=== PATIENT | male | born 1950 | race Caucasian/White ===

== ENCOUNTER 2016-06-07 13:01 | Day surgery (SDC) | payer MEDICARE, OTHER ==
--- NOTE | 2016-06-10 11:12 | Operative Note ---
DATE OF PROCEDURE: 06/07/2016. PREOPERATIVE DIAGNOSIS: URINARY URGENCY AND FREQUENCY. POSTOPERATIVE DIAGNOSIS: BENIGN PROSTATIC HYPERTROPHY WITH SYMPTOMS. PROCEDURE: Cystoscopy. ANESTHESIA: Local. PROCEDURE: Preoperative informed consent was obtained. Antibiotics were given. The patient was brought to the procedure room at [facility] and placed supine with the genitalia prepped and draped in the usual sterile fashion. Flexible cystoscopy was carried out. The urethra appeared unremarkable, and so the prostatic urethra was entered. There was moderate bi- lobar prostatic obstruction seen. The bladder was then entered and inspected systematically. No significant abnormalities were seen. The ureteral orifices had normal appearance and positioning. There was no evidence of mucosal mass or other abnormality with the exception of mild to moderate trabeculation. The scope was then withdrawn. The patient tolerated the procedure well. PLAN: We discussed treatment options for his obstructive benign prostatic hypertrophy which appears to be the cause of his symptoms. He has elected to start Flomax, and a prescription was written. He will be following up to review his response in two months. Patrick Alas M.D. Date Time Job Number: [id number] cc: Ernestina Amin M.D. [facility]ITALMontrell
== END 2016-06-07 13:36 | disposition home or self-care (01) ==
LOC: SC 13:01
PROVIDERS: ATTEND Urology
DX: N40.1 Benign prostatic hyperplasia with lower urinary tract symptoms (principal); R35.0 Frequency of micturition; I10 Essential (primary) hypertension

== ENCOUNTER 2016-06-12 11:34 | Inpatient (IN) | payer MEDICARE, OTHER ==
[2016-06-12] MEDS ORDERED: DICYCLOMINE HCL 10 MG/ML AMPUL IM ONE (11:58)
[2016-06-12] MEDS ORDERED: 0.9 % SODIUM CHLORIDE 1,000 ML BAG IV ONE (11:58)
[2016-06-12] MEDS ORDERED: ONDANSETRON HCL IV 4 MG/2 ML VIAL IV ONE (11:58)
--- NOTE | 2016-06-12 12:04 | Emergency Department Record ---
History of Present Illness - General Chief complaint: Nausea, Vomiting, Diarrhea Stated complaint: ABD PAIN/DIARRHEA Time Seen by Provider: 06/12/16 11:57 Source: Patient Mode of Arrival: Ambulatory Limitations: No limitations - History of Present Illness Initial comments: 66 yo male presents with nausea, vomiting, loose stools since starting Mirlax 3 days ago. He took the third dose and developed frequent diarrhea without blood. Soon he became nauseated and started vomiting. In the last 24 hours the nausea, vomiting, and diarrhea have persisted. No fevers. No history of abdominal surgery. He denies any current abdominal pain. PCP is Dr Nicolas. complaint: Abdominal pain, Diarrhea, Nausea, Vomiting Description of Vomiting: Watery Description of Diarrhea: Water Location: Diffuse (none currently) Severity: Moderate Consistency: Constant, Intermittent Improves with: None Worsens with: Eating Context: Other (Onset after starting Miralax) Associated Symptoms: Loss of appetite - Related Data Home Medications Medication Instructions Recorded Confirmed Last Taken Hydrocodone/Acetaminophen 1 tab PO BID #90 03/09/16 06/12/16 Unknown [Hydrocodone/Acetaminophen 7.5mg/325mg] Lisinopril 40 mg PO DAILY #30 03/09/16 06/12/16 06/12/16 Cetirizine HCl [Zyrtec] 10 mg PO DAILY cap 04/07/16 06/12/16 06/11/16 Tamsulosin HCl [Flomax] 0.4 mg PO DAILY 06/12/16 06/12/16 06/11/16 Previous Rx's Medication Instructions Recorded Docusate Sodium [Colace] 100 mg PO BID #60 cap 03/11/16 Ondansetron [Zofran Odt] 4 mg PO Q8H #15 tab.rapdis 06/12/16 Allergies Allergy/AdvReac Type Severity Reaction Status Date / Time No Known Drug Allergies Allergy Verified 06/12/16 11:40 Review of Systems Constitutional: Denies: Chills, Fever, Malaise, Night sweats, Weakness Eyes: Denies: Eye discharge, Eye pain, Photophobia ENT: Denies: Congestion, Throat pain Respiratory: Denies: Cough, Dyspnea, Hemoptysis, Stridor, Wheezes Cardiovascular: Denies: Chest pain, Palpitations, Syncope Endocrine: Reports: Fatigue Gastrointestinal: Reports: As per HPI, Abdominal pain, Constipation, Diarrhea, Nausea, Vomiting. Denies: Hematemesis, Hematochezia, Melena Genitourinary: Denies: Dysuria, Frequency, Hematuria Musculoskeletal: Denies: Arthralgia, Back pain, Neck pain Skin: Denies: Bruising, Change in color, Rash Neurological: Denies: Confusion, Headache Psychiatric: Denies: Anxiety Hematological/Lymphatic: Denies: Blood Clots, Easy bleeding, Easy bruising, Swollen glands Past Medical History - SOCIAL HISTORY Smoking Status: Former smoker - RESPIRATORY Hx Respiratory Disorders: Yes Hx Sleep Apnea: Yes Hx of CPAP: Yes Comment:: pulmonary fibrosis since 1984 - CARDIOVASCULAR Hx Cardio Disorders: Yes Hx Hypertension: Yes Comment:: aortic aneurysm-chest? 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, more forgetful) - GI Hx GI Disorders: Yes Hx Reflux: Yes Hx Liver Disease: Yes (hepatitis C) Hx of Polyps: Yes (5-6 removed per scope) Comment:: reports intermittent constipation and takes laxative occassionally - Hx Genitourinary Disorders: Yes Hx UTI: Yes - ENDOCRINE Hx Endocrine Disorders: Yes Hx Diabetes: Yes (DM type 2 for 7-8 years) - MUSCULOSKELETAL Hx Musculoskeletal Disorders: Yes Hx Arthritis: Yes - PSYCH Hx Psych Problems: No - HEMATOLOGY/ONCOLOGY Hx Hematology/Oncology Disorders: No Family Medical History Hx Cancer: Mother, Brother/Sister Physical Exam - General General Appearance: Alert, Oriented x3, Cooperative, No acute distress Limitations: No limitations - Head Head exam: Normal inspection - Eye Eye exam: Normal appearance, PERRL. negative: Conjunctival injection - ENT ENT exam: Normal exam, Mucous membranes moist, Normal external ear exam, Normal orophraynx Ear exam: Normal external inspection. negative: External canal tenderness Nasal Exam: Normal inspection. negative: Discharge, Sinus tenderness Mouth exam: Normal external inspection, Tongue normal Teeth exam: Normal inspection. negative: Dental caries Throat exam: Normal inspection. negative: Tonsillar erythema, Tonsillar exudate - Neck Neck exam: Normal inspection, Full ROM. negative: Tenderness - Respiratory Respiratory exam: Normal lung sounds bilaterally. negative: Decreased breath sounds, Respiratory distress, Rhonchi, Stridor, Wheezes - Cardiovascular Cardiovascular Exam: Regular rate, Normal rhythm, Normal heart sounds - GI/Abdominal GI/Abdominal exam: Soft, Normal bowel sounds, Other (Very soft abdomen, non tender to deep palpation). negative: Diminished bowel sounds, Distended, Guarding, Hernia, Rigid, Tenderness - Rectal Rectal exam: Deferred - exam: Deferred - Extremities Extremities exam: Normal inspection, Full ROM, Normal capillary refill. negative: Tenderness - Back Back exam: Reports: Normal inspection, Full ROM. Denies: Muscle spasm, Rash noted, Tenderness - Neurological Neurological exam: Alert, Normal gait, Oriented X3 - Psychiatric Psychiatric exam: Normal affect, Normal mood. negative: Agitated, Anxious - Skin Skin exam: Dry, Intact, Normal color, Warm Course - Reevaluation(s) Reevaluation #1: The patient was seen and examined labs, zofran and IVF ordered 06/12/16 12:03 Reevaluation #2: The labs were reviewed No acute changes on the CBC CMP with mild increase in AG and Bili likely result of dehydration The Lipase is normal 06/12/16 12:32 Reevaluation #3: The patient states he is doing better with well controlled nausea. He is trialling PO fluids 06/12/16 13:26 Reevaluation #4: The patient continues to do well No vomiting or diarrhea He has tolerated PO without symptoms or pain 06/12/16 14:11 Reevaluation #5: The abdomen is very soft and non tender We discussed DC home on liquids with a return if any vomiting, pain, fever or uncontrolled diarrhea 06/12/16 14:21 The patient vomited. Will order CT as well. 06/12/16 14:31 06/12/16 16:30 - Consultations Consultation #1: 16:30 CT is consistent with a small bowel obstruction. No visible transition point. The distal ileal loops are decompressed. Proximal loops about 4.3 cm. Consultation #2: I SRUTHI Briceño of general surgery We discussed the CT findings of SBO The patient will be admitted to [facility], NPO, and he will consult in the morning. The abdomen remains soft. I Will discuss with his PCP or admitting service Consultation #3: I SRUTHI Nicolas. She will admit with a consult to Dr Briceño for the morning Medical Decision Making - Lab Data Result diagrams: 06/12/16 11:57 06/12/16 11:57 Disposition Disposition: Admit Clinical Impression: Vomiting and diarrhea, Small bowel obstruction Disposition: Still a Patient at [facility] Decision to Admit: Admit from ER Decision to Admit Date: 06/12/16 Decision to Admit Time: 16:55 Condition: (2) Stable Additional Instructions: Stop the Miralax The next 1 day use drinks fluids then slowly adding regular foods Return immediately if you have fever, pain, vomiting, unable to eat, uncontrolled diarrhea or new concerns. Call your doctor for a recheck in the next 1 day or return to the ER for a recheck Prescriptions: Ondansetron [Zofran Odt] 4 mg PO Q8H #15 tab.rapdis Forms: Patient Portal Access Time of Disposition: 16:55
[2016-06-12 12:13] LABS: BASO % 0.2 % (0-6); EOS % 0.2 % (0-6); GRAN % 64.5 % (47-80); HEMATOCRIT 48.1 % (42.0-52.0); HEMOGLOBIN 15.4 gm/dl (14.0-18.0); MEAN CELL VOLUME 95.1 fl (81-97); MEAN CORPUSCULAR HEMOGLOBIN 30.4 pg (27-33); MEAN PLATELET VOLUME 10.8 fl (7.4-10.4); MONO % 12.1 % (0-9); PLATELET COUNT 129 K/uL (130-400); RED BLOOD COUNT 5.06 M/uL (4.40-5.70); RED CELL DISTRIBUTION WIDTH 14.6 % (11.5-14.5); WHITE BLOOD COUNT W/O DIFF 6.1 K/uL (4.2-12.2)
[2016-06-12 12:25] LABS: ALBUMIN 4.8 gm/dL (3.5-5.0); ALKALINE PHOSPHATASE 65 U/L (38-126); ALT/SGPT 64 U/L (21-72); ANION GAP 17.5 (7-16); AST/SGOT 56 U/L (17-59); BILIRUBIN,TOTAL 1.74 mg/dL (0.2-1.3); BLOOD UREA NITROGEN 15 mg/dL (9-20); CARBON DIOXIDE 24.5 mmol/L (22-30); CREATININE 1.2 mg/dL (0.66-1.25); EST GLOMERULAR FILTRATION RATE > 60 ml/min; GLUCOSE,RANDOM 172 mg/dL (70-110); LIPASE 84 U/L (23-300); TOTAL PROTEIN 8.1 gm/dL (6.3-8.2)
[2016-06-12] MEDS ORDERED: ONDANSETRON HCL IV 4 MG/2 ML VIAL IVP ONE (12:53)
[2016-06-12] MEDS ORDERED: ONDANSETRON 4 MG ODT TABLET SL ONE (14:22)
[2016-06-12] MEDS ORDERED: MORPHINE SULFATE 5 MG/ML PFS IVP ONE (16:29)
[2016-06-12] MEDS ORDERED: ONDANSETRON HCL IV 4 MG/2 ML VIAL IVP PRN (17:34)
[2016-06-12] MEDS: MORPHINE SULFATE 5 MG/ML PFS IVP PRN (20:58)
[2016-06-13] MEDS: 0.9 % SODIUM CHLORIDE 1000ML 1,000 ML IV PRN ×3 (00:49→18:54)
[2016-06-13] MEDS: MORPHINE SULFATE 5 MG/ML PFS IVP PRN ×2 (01:00→08:14)
[2016-06-13 06:08] LABS: BASO % 0.2 % (0-6); EOS % 1.3 % (0-6); GRAN % 43.4 % (47-80); LYMPH % 42.1 % (16-45); MEAN CELL VOLUME 97.2 fl (81-97); MEAN CORPUSCULAR HEMOGLOBIN 30.8 pg (27-33); MEAN CORPUSCULAR HGB CONC 31.7 g/dl (32-36); PLATELET COUNT 111 K/uL (130-400); RED BLOOD COUNT 4.22 M/uL (4.40-5.70); RED CELL DISTRIBUTION WIDTH 14.6 % (11.5-14.5); WHITE BLOOD COUNT W/O DIFF 4.8 K/uL (4.2-12.2)
[2016-06-13 06:18] LABS: ALB/GLOB RATIO 1.3 (1.1-1.8); ALBUMIN 3.8 gm/dL (3.5-5.0); ALKALINE PHOSPHATASE 45 U/L (38-126); ALT/SGPT 55 U/L (21-72); ANION GAP 9.9 (7-16); AST/SGOT 44 U/L (17-59); BILIRUBIN,TOTAL 1.18 mg/dL (0.2-1.3); BLOOD UREA NITROGEN 13 mg/dL (9-20); CARBON DIOXIDE 26.1 mmol/L (22-30); CREATININE 0.9 mg/dL (0.66-1.25); EST GLOMERULAR FILTRATION RATE > 60 ml/min; GLUCOSE,RANDOM 112 mg/dL (70-110); TOTAL PROTEIN 6.7 gm/dL (6.3-8.2)
[2016-06-13 06:19] LABS: INR 1.07; PARTIAL THROMBOPLASTIN TIME 29.3 SECONDS (24.5-39.1); PROTHROMBIN TIME (PATIENT) 12.1 SECONDS (9.5-12.1)
--- NOTE | 2016-06-13 07:45 | CT SCAN REPORT ---
EXAM: CT SCAN OF THE ABDOMEN AND PELVIS WITH CONTRAST HISTORY: ABDOMINAL PAIN AND VOMITING. DIARRHEA. TECHNIQUE: Standard CT imaging of the abdomen and pelvis was performed with oral and intravenous contrast. 100 ml of Omnipaque 300 were administered. Additional coronal and sagittal reformatted images were also performed. Comparison: 03/09/16. FINDINGS: There is mild atelectasis or scarring at the lung bases. A calcified granuloma is present at the right lung base. There are scattered nonenlarged paraesophageal lymph nodes which appear stable. The liver parenchyma appears normal. The gallbladder, biliary tree, pancreas, spleen, and adrenal glands are normal. There are multiple varicosities along the gastric fundus. Multiple scattered nonenlarged lymph nodes are present within the celiac access. These have decreased in size when compared to the previous examination. The largest measures 1.1 x 1.8 cm. This previously measured 1.9 x 2.4 cm. No new or enlarging lymph nodes are identified. There are atherosclerotic calcifications within the aorta with no aneurysm or dissection. A 3.3 cm exophytic cyst is present at the posterior cortex of the left kidney. The kidneys and ureters are otherwise normal. There are multiple air and fluid filled dilated small bowel loops within the upper and mid abdomen. These extend into the right lower quadrant. The small bowel loops measure up to 4.3 cm in diameter. There is a small amount of free fluid within the small mesentery as well as within the pelvis. The appearance is consistent with small bowel obstruction. No discreet zone of transition is apparent on these images. The distal ileal loops are nondistended. The colon is nondistended. There is scattered diverticula within the descending and sigmoid colon regions with no evidence for acute diverticulitis. There is no pneumoperitoneum. The urinary bladder appears normal. The prostate gland is mildly enlarged. There is a small right inguinal hernia containing fat and fluid. A tiny left fat containing inguinal hernia is also present. There are no acute osseous abnormalities. IMPRESSION: 1. FINDINGS CONSISTENT WITH DEVELOPING SMALL BOWEL OBSTRUCTION WITH MULTIPLE DILATED AIR AND FLUID FILLED SMALL BOWEL LOOPS WITHIN THE ABDOMEN AND PELVIS. THESE MEASURE UP TO 4.3 CM IN DIAMETER. THERE IS NO VISIBLE DISCREET ZONE OF TRANSITION. 2. COLONIC DIVERTICULOSIS WITH NO DIVERTICULITIS. 3. MINOR FREE FLUID WITHIN THE SMALL BOWEL MESENTERY AND PELVIS. 4. FAT AND FLUID CONTAINING RIGHT INGUINAL HERNIA. A TINY FAT CONTAINING LEFT INGUINAL HERNIA IS ALSO PRESENT. 5. LEFT RENAL CYST. 6. INTERVAL DECREASE IN SIZE OF THE PREVIOUSLY NOTED RETROPERITONEAL LYMPH NODES ALONG THE CELIAC ACCESS. THE LARGEST REMAINING LYMPH NODE MEASURES 1.1 X 1.8 CM AND HAS DECREASED IN SIZE FROM THE PREVIOUS EXAMINATION WHERE IT MEASURED 1.9 X 2.4 CM. 7. THERE ARE MULTIPLE VARICOSITIES ALONG THE GASTRIC FUNDUS. 8. OLD GRANULOMATOUS DISEASE. 9. MILD CORONARY ARTERY CALCIFICATIONS. JOB NUMBER: [id number] MTDD
--- NOTE | 2016-06-13 09:26 | History & Physical ---
History of Present Illness - Date of Service Date of Service for History & Physical: 06/13/16 - History of Present Illness Admitting Diagnosis: Small Bowel obstruction History of Present Illness: Nicolas Stallworth is a 66 y/o male presented to ER with 3 day history of nausea, vomiting and diarrhea. Has history of opioid-induced constipation in which uses Mirilax with usual success. No previous history of bowel obstructions. Is known type 2 diabetic controlled with Metformin. Began passing large amounts of liquid stool 1am the morning of 06/13 with large amounts of flatus and since reports abdominal pain and nausea are "much better". Has been ambulating to the BR without issue. Travel Screening - Travel/Exposure Within Last 30 Days Have you traveled within the last 30 days?: No - Travel/Exposure Within Last Year Have you traveled outside the [place] in the last year?: No - Additonal Travel Details Have you been exposed to anyone with a communicable illness?: No - Travel Symptoms Symptom Screening: None Review of Systems Reviewed: No additional complaints except as noted below Constitutional: Denies: Chills, Fever, Malaise, Night sweats, Weakness Eyes: Denies: Eye discharge, Eye pain, Photophobia ENT: Denies: Congestion, Throat pain Respiratory: Denies: Cough, Dyspnea, Hemoptysis, Stridor, Wheezes Cardiovascular: Denies: Chest pain, Palpitations, Syncope Endocrine: Reports: Fatigue Gastrointestinal: Reports: As per HPI, Abdominal pain, Constipation, Diarrhea, Nausea, Vomiting. Denies: Hematemesis, Hematochezia, Melena Genitourinary: Denies: Dysuria, Frequency, Hematuria Musculoskeletal: Denies: Arthralgia, Back pain, Neck pain Skin: Denies: Bruising, Change in color, Rash Neurological: Denies: Confusion, Headache Psychiatric: Denies: Anxiety Hematological/Lymphatic: Denies: Blood Clots, Easy bleeding, Easy bruising, Swollen glands Past Medical History - SOCIAL HISTORY Smoking Status: Former smoker Alcohol Use: None Drug Use: None - RESPIRATORY Hx Respiratory Disorders: Yes Hx Sleep Apnea: Yes Hx of CPAP: Yes Comment:: pulmonary fibrosis since 1984 - CARDIOVASCULAR Hx Cardio Disorders: Yes Hx Hypertension: Yes Comment:: aortic aneurysm-chest? 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, more forgetful) - GI Hx GI Disorders: Yes Hx Reflux: Yes Hx Liver Disease: Yes (hepatitis C) Hx of Polyps: Yes (5-6 removed per scope) Comment:: reports intermittent constipation and takes laxative occassionally - Hx Genitourinary Disorders: Yes Hx UTI: Yes - ENDOCRINE Hx Endocrine Disorders: Yes Hx Diabetes: Yes (DM type 2 for 7-8 years) - MUSCULOSKELETAL Hx Musculoskeletal Disorders: Yes Hx Arthritis: Yes - PSYCH Hx Psych Problems: No - HEMATOLOGY/ONCOLOGY Hx Hematology/Oncology Disorders: No Family Medical History Any Significant Family History?: Yes Hx Cancer: Mother, Brother/Sister H&P Meds/Allergies - Allergies Allergies: Allergies Allergy/AdvReac Type Severity Reaction Status Date / Time No Known Drug Allergies Allergy Verified 06/12/16 11:40 - Home Medications Home Medications Medication Instructions Recorded Confirmed Last Taken Hydrocodone/Acetaminophen 1 tab PO BID #90 03/09/16 06/12/16 Unknown [Hydrocodone/Acetaminophen 7.5mg/325mg] Lisinopril 40 mg PO DAILY #30 03/09/16 06/12/16 06/12/16 Cetirizine HCl [Zyrtec] 10 mg PO DAILY cap 04/07/16 06/12/16 06/11/16 Tamsulosin HCl [Flomax] 0.4 mg PO DAILY 06/12/16 06/12/16 06/11/16 Previous Rx's Medication Instructions Recorded Docusate Sodium [Colace] 100 mg PO BID #60 cap 03/11/16 Ondansetron [Zofran Odt] 4 mg PO Q8H #15 tab.rapdis 06/12/16 - Active Medications Active Medications: Current Medications Enoxaparin Sodium (Lovenox) 40 mg SC DAILY JOYCE Sodium Chloride () 1,000 mls @ 125 mls/hr IV .Q8H PRN PRN Reason: LARGE VOLUME IV Last Admin: 06/13/16 00:49 Dose: 125 mls/hr Morphine Sulfate (Morphine Sulfate) 2.5 mg IVP Q4HR PRN PRN Reason: Pain - General Stop: 06/19/16 17:35 Last Admin: 06/13/16 08:14 Dose: 2.5 mg Ondansetron HCl (Zofran) 4 mg IVP Q4H PRN PRN Reason: NAUSEA Physical Exam - Vital Signs Vital Signs: Vital Signs - Last 24 Hrs Temp Pulse Resp BP Pulse Ox 06/13/16 08:00 98.9 F 83 20 159/93 90 L 06/13/16 04:00 99.0 F 84 16 145/78 92 L 06/13/16 00:15 98.8 F 88 16 134/82 93 L 06/12/16 20:54 98.9 F 97 H 18 146/72 94 L 06/12/16 18:06 114 H 16 06/12/16 17:34 98.6 F 114 H 16 135/75 91 L - General General Appearance: Alert, Oriented x3, Cooperative, No acute distress Limitations: No limitations - Head Head exam: Normal inspection - Eye Eye exam: Normal appearance, PERRL. negative: Conjunctival injection - ENT ENT exam: Normal exam, Mucous membranes moist, Normal external ear exam, Normal orophraynx Ear exam: Normal external inspection. negative: External canal tenderness Nasal Exam: Normal inspection. negative: Discharge, Sinus tenderness Mouth exam: Normal external inspection, Tongue normal Teeth exam: Normal inspection. negative: Dental caries Throat exam: Normal inspection. negative: Tonsillar erythema, Tonsillar exudate - Neck Neck exam: Normal inspection, Full ROM. negative: Tenderness - Respiratory Respiratory exam: Normal lung sounds bilaterally. negative: Decreased breath sounds, Respiratory distress, Rhonchi, Stridor, Wheezes - Cardiovascular Cardiovascular Exam: Regular rate, Normal rhythm, Normal heart sounds, Systolic murmur (grade I/II) - GI/Abdominal GI/Abdominal exam: Soft, Other (soft, generalized tenderness to deep palpation, hyperactive bowel sounds RUQ and RLQ, hypoactive LUQ and LLQ). negative: Diminished bowel sounds, Distended, Guarding, Hernia, Rigid, Tenderness - Rectal Rectal exam: Deferred - exam: Deferred - Extremities Extremities exam: Normal inspection, Full ROM, Normal capillary refill. negative: Tenderness - Back Back exam: Reports: Normal inspection, Full ROM. Denies: Muscle spasm, Rash noted, Tenderness - Neurological Neurological exam: Alert, Normal gait, Oriented X3 - Psychiatric Psychiatric exam: Normal affect, Normal mood. negative: Agitated, Anxious - Skin Skin exam: Dry, Intact, Normal color, Warm Results - Labs Result Diagrams: 06/13/16 06:00 06/13/16 06:00 Labs Last 24 Hours: Laboratory Results - last 24 hr 06/13/16 06/13/16 06/13/16 06:00 06:00 06:00 WBC 4.8 RBC 4.22 L Hgb 13.0 L Hct 41.0 L MCV 97.2 H MCH 30.8 MCHC 31.7 L RDW 14.6 H Plt Count 111 L MPV 10.0 Gran % 43.4 L Lymphocytes % 42.1 Monocytes % 13.0 H Eosinophils % 1.3 Basophils % 0.2 PT 12.1 INR 1.07 PTT 29.30 Sodium 145 Potassium 4.0 Chloride 109 H Carbon Dioxide 26.1 Anion Gap 9.9 BUN 13 Creatinine 0.9 Estimated GFR > 60 Random Glucose 112 H Calcium 8.1 L Total Bilirubin 1.18 AST 44 ALT 55 Alkaline Phosphatase 45 Total Protein 6.7 Albumin 3.8 Globulin 2.9 Albumin/Globulin Ratio 1.3 - Imaging and Cardiology CT scan - abdomen Status: Report reviewed (CT abdomen 06/12/16- 1- development of SBo, 2- colonic diverticulosis without diverticulitis, 3- right inguinal fat/fluid filled hernia , 4- left renal cyst, 5- decrease in retroperitoneal lymph node size along surjit access, 6- multiple varicosities in gastric fundus, 7- old granulomatous disease, 8- mild coronary artery calcification) VTE H&P Assessment - Risk for VTE Risk for VTE: Yes Risk Level: Low Risk Assessment Date: 06/12/16 Risk Assessment Time: 11:00 VTE Orders Placed or Will Be Placed: Yes Plan - Inpatient Certification Inpatient Certification: Admit to inpatient care: Based on my medical assessment, after consideration of patient's risk factors (age, co-morbidities and patient presenting symptoms and acuity), I expect that this patient will remain in the hospital greater than or equal to two midnights and that the services needed warrant inpatient care because: Patient Risk Factors: [SBO, dehydration, NPO status, awaiting surgical consult.] Estimated length of stay: [48-72 hours] The patient may reasonably be expected to be discharged or transferred to a hospital within 96 hours after admission to [facility]. Services needed: [IVF, pain control, surgical consult] Post hospital care (if known): [] I certify that my determination is in accordance with my understanding of Medicare requirements for reasonable and necessary inpatient services. 06/13/16 09:24 - Detailed Diagnosis and Plan (1) Small bowel obstruction Current Visit: Yes Status: Acute Base Code: K56.69 - OTHER INTESTINAL OBSTRUCTION Comment: 06/13/[address] Briceño IVF-0.9% NS at 125ml/hr NPO until further notice (2) Vomiting and diarrhea Current Visit: Yes Status: Acute Base Code: R11.10 - VOMITING, UNSPECIFIED; R19.7 - DIARRHEA, UNSPECIFIED Comment: 06/13/16 IVF 0.9% NS @ 125ml/hr Zofran 4mg IVP Q 4 hrs PRN CBC/BMP daily (3) Acute renal insufficiency Current Visit: No Status: Resolved Base Code: N28.9 - DISORDER OF KIDNEY AND URETER, UNSPECIFIED Comment: 06/13/16 History of previous renal insufficiency, BUN 13/Cr 0.9, GFR >60- normal on admit and today Continue .9% NS at 125/hr for hydration maintenance CBC/BMP daily (4) DVT prophylaxis Current Visit: No Status: Acute Base Code: [id number] - Comment: 06/13/16 Lovenox 40mg SQ QD (5) Full code status Current Visit: No Status: Acute Base Code: Z78.9 - OTHER SPECIFIED HEALTH STATUS Comment: 06/13/16 Patient will remain full code status during hospitalization (6) DM2 (diabetes mellitus, type 2) Current Visit: Yes Status: Chronic Qualifiers: Diabetes mellitus complication status: without complication Diabetes mellitus long term care administrator insulin use: without long term care administrator use Qualified Code(s): E11.9 - Type 2 diabetes mellitus without complications Base Code: E11.9 - TYPE 2 DIABETES MELLITUS WITHOUT COMPLICATIONS Comment: 06/13/16 Random glucose on presentation to ER 112 Monitor for hypo/hyperglycemic symptoms Continue IVF 2 125ml/hr (7) Dehydration Current Visit: Yes Status: Resolved Base Code: E86.0 - DEHYDRATION Comment: 06/13/16 Dehydration upon admit and resolved after IVF initiated, normal renal function Plt 129->101 Anion Gap 17.5->9.9 HGB 15.4->13 Continue IVf @ 125ml/hr CBC/BMP daily
[2016-06-13] MEDS ORDERED: ACETAMINOPHEN 325 MG TAB PO ONE (14:51)
[2016-06-13] MEDS: ENOXAPARIN 40 MG/0.4 ML SYR SC SCH (14:53)
[2016-06-13] MEDS: AMLODIPINE BESYLATE 5MG TAB PO SCH (16:08)
[2016-06-13] MEDS: LORATADINE 10 MG TABLET PO SCH (16:08)
[2016-06-13] MEDS: LISINOPRIL 20 MG TABLET PO SCH (16:09)
[2016-06-13] MEDS: TAMSULOSIN HCL 0.4 MG CAP.ER.24H PO SCH (16:09)
[2016-06-13] MEDS: PANTOPRAZOLE SODIUM 40 MG TABLET PO SCH (16:09)
[2016-06-14] MEDS: 0.9 % SODIUM CHLORIDE 1000ML 1,000 ML IV PRN (03:18)
[2016-06-14 06:01] LABS: BASO % 0.5 % (0-6); EOS % 2.4 % (0-6); GRAN % 40.6 % (47-80); HEMATOCRIT 39.7 % (42.0-52.0); HEMOGLOBIN 12.6 gm/dl (14.0-18.0); LYMPH % 46.2 % (16-45); MEAN CELL VOLUME 96.6 fl (81-97); MEAN CORPUSCULAR HGB CONC 31.7 g/dl (32-36); MEAN PLATELET VOLUME 10.2 fl (7.4-10.4); MONO % 10.3 % (0-9); PLATELET COUNT 100 K/uL (130-400); RED BLOOD COUNT 4.11 M/uL (4.40-5.70); RED CELL DISTRIBUTION WIDTH 14.1 % (11.5-14.5); WHITE BLOOD COUNT W/O DIFF 3.8 K/uL (4.2-12.2)
[2016-06-14 06:02] LABS: MEAN CORPUSCULAR HEMOGLOBIN 30.6 pg (27-33)
[2016-06-14 06:14] LABS: ANION GAP 9.2 (7-16); BLOOD UREA NITROGEN 8 mg/dL (9-20); CARBON DIOXIDE 26.8 mmol/L (22-30); CREATININE 0.7 mg/dL (0.66-1.25); EST GLOMERULAR FILTRATION RATE > 60 ml/min; GLUCOSE,RANDOM 116 mg/dL (70-110)
[2016-06-14] MEDS: PANTOPRAZOLE SODIUM 40 MG TABLET PO SCH (06:54)
--- NOTE | 2016-06-14 09:01 | RADIOLOGY REPORT ---
EXAM: ABDOMEN SERIES HISTORY: ABDOMINAL PAIN. TECHNIQUE: Supine and upright views of the abdomen were obtained. Comparison: 05/17/16 abdomens series. FINDINGS: The bowel gas pattern is nonspecific with air seen scattered throughout much of the colon and also probably in some slightly distended small bowel. The dilated small bowel loops measure up to about 5.7 cm in size in the right mid abdomen. Some air fluid levels are seen in both colon and small bowel as well as stomach. This may just reflect an ileus, but if there is a clinical suspicion of early obstruction, follow-up films would be suggested to see if there is any progressive bowel distention and greater air fluid levels. The right hemidiaphragm is not included in its entirety on the film with some relative elevation of the right hemidiaphragm, but as visualized, no free air evident. Hypertrophic spurring in the spine. IMPRESSION: SOME MILD SMALL BOWEL DISTENTION IN THE MID ABDOMEN PARTICULARLY ON THE RIGHT, BUT AIR IS SEEN SCATTERED THROUGHOUT MUCH OF THE COLON WELL. SOME NONSPECIFIC AIR FLUID LEVELS. RECOMMEND FOLLOW-UP FILMS IF SYMPTOMS PERSIST. NO FREE AIR EVIDENT. RIGHT HEMIDIAPHRAGM, HOWEVER, NOT ENTIRELY INCLUDED ON THE STUDY. JOB NUMBER: [id number] MTDD
[2016-06-14] MEDS ORDERED: POLYETHYLENE GLY 17 GM PACKET PO ONE (10:12)
[2016-06-14] MEDS ORDERED: METFORMIN 500 MG TABLET PO SCH (10:30)
[2016-06-14] MEDS ORDERED: GLIPIZIDE XL 5 MG TABLET PO SCH (10:30)
--- NOTE | 2016-06-14 10:32 | Physician Progress Note ---
Subjective - Date Date of Physician Progress Note: 06/14/16 - Subjective Subjective Comment: Reporting has tolerated clear liquid and full regular diet, has been moving bowels frequently noting loose light brown stools, + flatus. Nausea dn abdominal pain have resolved. No new complaint Objective - Vital Signs Vital Signs: Vital Signs - Last 24 Hrs Temp Pulse Resp BP Pulse Ox 06/14/16 08:32 98.3 F 77 20 154/76 94 L 06/14/16 06:00 98.6 F 74 16 143/73 93 L 06/14/16 01:37 98.8 F 82 18 145/76 91 L 06/13/16 22:29 98.7 F 74 18 126/67 92 L 06/13/16 18:00 98.0 F 80 18 149/90 91 L 06/13/16 14:43 97.9 F 82 18 152/91 91 L - General General Appearance: Alert, Oriented x3, Cooperative, No acute distress Limitations: No limitations - Head Head exam: Normal inspection - Eye Eye exam: Normal appearance, PERRL. negative: Conjunctival injection - ENT ENT exam: Normal exam, Mucous membranes moist, Normal external ear exam, Normal orophraynx Ear exam: Normal external inspection. negative: External canal tenderness Nasal Exam: Normal inspection. negative: Discharge, Sinus tenderness Mouth exam: Normal external inspection, Tongue normal Teeth exam: Normal inspection. negative: Dental caries Throat exam: Normal inspection. negative: Tonsillar erythema, Tonsillar exudate - Neck Neck exam: Normal inspection, Full ROM. negative: Tenderness - Respiratory Respiratory exam: Normal lung sounds bilaterally. negative: Decreased breath sounds, Respiratory distress, Rhonchi, Stridor, Wheezes - Cardiovascular Cardiovascular Exam: Regular rate, Normal rhythm, Normal heart sounds, Systolic murmur (grade I/II) - GI/Abdominal GI/Abdominal exam: Soft, Other (soft, non-tender, hyperactive bowel sounds RUQ and RLQ, mildly hypoactive LUQ and LLQ). negative: Diminished bowel sounds, Distended, Guarding, Hernia, Rigid, Tenderness - Rectal Rectal exam: Deferred - exam: Deferred - Extremities Extremities exam: Normal inspection, Full ROM, Normal capillary refill. negative: Tenderness - Back Back exam: Reports: Normal inspection, Full ROM. Denies: Muscle spasm, Rash noted, Tenderness - Neurological Neurological exam: Alert, Normal gait, Oriented X3 - Psychiatric Psychiatric exam: Normal affect, Normal mood. negative: Agitated, Anxious - Skin Skin exam: Dry, Intact, Normal color, Warm Assessment and Plan - Assessment and Plan (1) Small bowel obstruction Current Visit: Yes Status: Acute Base Code: K56.69 - OTHER INTESTINAL OBSTRUCTION Comment: 06/14/[address] Briceño- abdominal x-ray most likely ileus IVF D/C Tolerating regular diet (2) Vomiting and diarrhea Current Visit: Yes Status: Acute Base Code: R11.10 - VOMITING, UNSPECIFIED; R19.7 - DIARRHEA, UNSPECIFIED Comment: 06/14/16 Nausea and vomiting resolved IVF D/C Continues with loose frequent stooling and + flatus (3) DVT prophylaxis Current Visit: No Status: Acute Base Code: [id number] - Comment: 06/14/16 Lovenox 40mg SQ QD, will DC at discharge (4) Full code status Current Visit: No Status: Acute Base Code: Z78.9 - OTHER SPECIFIED HEALTH STATUS Comment: 06/13/16 Patient will remain full code status during hospitalization (5) DM2 (diabetes mellitus, type 2) Current Visit: Yes Status: Chronic Qualifiers: Diabetes mellitus complication status: without complication Diabetes mellitus detention insulin use: without extermination supervisor use Qualified Code(s): E11.9 - Type 2 diabetes mellitus without complications Base Code: E11.9 - TYPE 2 DIABETES MELLITUS WITHOUT COMPLICATIONS Comment: 06/14/16 Began regular diet today and tolerating well Restart Glipizide and Metformin per home dosing Results - Labs Result Diagrams: 06/14/16 05:55 06/14/16 05:55 Labs Last 24 Hours: Laboratory Results - last 24 hr 06/14/16 06/14/16 06/15/16 05:55 05:55 06:00 WBC 3.8 L RBC 4.11 L Hgb 12.6 L Hct 39.7 L MCV 96.6 MCH 30.6 MCHC 31.7 L RDW 14.1 Plt Count 100 L MPV 10.2 Gran % 40.6 L Neutrophils % Not Reportable Cancelled Band Neutrophils % Cancelled Lymphocytes % Not Reportable Cancelled Monocytes % Not Reportable Cancelled Eosinophils % 2.4 Cancelled Basophils % 0.5 Cancelled Metamyelocytes Cancelled Myelocytes Cancelled Promyelocytes Cancelled Nucleated RBCs Cancelled Differential Comment Cancelled Hypersegmented Polys Cancelled Plasma Cells Cancelled Other Cell Type Cancelled Toxic Granulation Cancelled Dohle Bodies Cancelled Mary Rods Cancelled Platelet Estimate Cancelled RBC Morphology Cancelled Polychromasia Cancelled Hypochromasia Cancelled Poikilocytosis Cancelled Basophilic Stippling Cancelled Anisocytosis Cancelled Microcytosis Cancelled Macrocytosis Cancelled Spherocytes Cancelled Sickle Cells Cancelled Target Cells Cancelled Tear Drop Cells Cancelled Ovalocytes Cancelled Stomatocytes Cancelled Helmet Cells Cancelled Ren-[place] Bodies Cancelled [place] Rings Cancelled [place] Cells Cancelled Acanthocytes (Spur) Cancelled Rouleaux Cancelled Schistocytes Cancelled Morphology Comment Cancelled Sodium 140 Potassium 4.0 Chloride 104 Carbon Dioxide 26.8 Anion Gap 9.2 BUN 8 L Creatinine 0.7 Estimated GFR > 60 Random Glucose 116 H Calcium 8.3 L 06/16/16 06/17/16 06:00 06:00 WBC RBC Hgb Hct MCV MCH MCHC RDW Plt Count MPV Gran % Neutrophils % Cancelled Cancelled Band Neutrophils % Cancelled Cancelled Lymphocytes % Cancelled Cancelled Monocytes % Cancelled Cancelled Eosinophils % Cancelled Cancelled Basophils % Cancelled Cancelled Metamyelocytes Cancelled Cancelled Myelocytes Cancelled Cancelled Promyelocytes Cancelled Cancelled Nucleated RBCs Cancelled Cancelled Differential Comment Cancelled Cancelled Hypersegmented Polys Cancelled Cancelled Plasma Cells Cancelled Cancelled Other Cell Type Cancelled Cancelled Toxic Granulation Cancelled Cancelled Dohle Bodies Cancelled Cancelled Mary Rods Cancelled Cancelled Platelet Estimate Cancelled Cancelled RBC Morphology Cancelled Cancelled Polychromasia Cancelled Cancelled Hypochromasia Cancelled Cancelled Poikilocytosis Cancelled Cancelled Basophilic Stippling Cancelled Cancelled Anisocytosis Cancelled Cancelled Microcytosis Cancelled Cancelled Macrocytosis Cancelled Cancelled Spherocytes Cancelled Cancelled Sickle Cells Cancelled Cancelled Target Cells Cancelled Cancelled Tear Drop Cells Cancelled Cancelled Ovalocytes Cancelled Cancelled Stomatocytes Cancelled Cancelled Helmet Cells Cancelled Cancelled Ren-[place] Bodies Cancelled Cancelled [place] Rings Cancelled Cancelled [place] Cells Cancelled Cancelled Acanthocytes (Spur) Cancelled Cancelled Rouleaux Cancelled Cancelled Schistocytes Cancelled Cancelled Morphology Comment Cancelled Cancelled Sodium Potassium Chloride Carbon Dioxide Anion Gap BUN Creatinine Estimated GFR Random Glucose Calcium - Imaging and Cardiology Abdominal x-ray Status: Report reviewed (1- elevation of right hemidiaphragm, 2- most dealer compliance representative of ileus, 3- no free air, 4- scattered air within colon, 5- continue folow up if clinical suspicion of SBO) DVT/PE Assessment - Risk for VTE Risk for VTE: No Risk Level: Low Risk Assessment Date: 06/12/16 Risk Assessment Time: 11:00 VTE Orders Placed or Will Be Placed: Yes - Active Medicaitons Current Medications: Current Medications Amlodipine Besylate (Norvasc) 10 mg PO DAILY [facility] Last Admin: 06/13/16 16:08 Dose: 10 mg Enoxaparin Sodium (Lovenox) 40 mg SC DAILY [facility] Last Admin: 06/13/16 14:53 Dose: 40 mg Sodium Chloride () 1,000 mls @ 125 mls/hr IV .Q8H PRN PRN Reason: LARGE VOLUME IV Last Admin: 06/14/16 03:18 Dose: 125 mls/hr Lisinopril (Zestril) 40 mg PO DAILY [facility] Last Admin: 06/13/16 16:09 Dose: 40 mg Loratadine (Claritin) 10 mg PO DAILY [facility] Last Admin: 06/13/16 16:08 Dose: 10 mg Morphine Sulfate (Morphine Sulfate) 2.5 mg IVP Q4HR PRN PRN Reason: Pain - General Stop: 06/19/16 17:35 Last Admin: 06/13/16 08:14 Dose: 2.5 mg Ondansetron HCl (Zofran) 4 mg IVP Q4H PRN PRN Reason: NAUSEA [facility] Last Admin: 06/14/16 06:54 Dose: 40 mg Tamsulosin HCl (Flomax) 0.4 mg PO DAILY [facility] Last Admin: 06/13/16 16:09 Dose: 0.4 mg AMI Plan - Labs Result Diagrams: 06/14/16 05:55 06/14/16 05:55
[2016-06-14] MEDS: LISINOPRIL 20 MG TABLET PO SCH (11:00)
[2016-06-14] MEDS: ENOXAPARIN 40 MG/0.4 ML SYR SC SCH (11:01)
[2016-06-14] MEDS: AMLODIPINE BESYLATE 5MG TAB PO SCH (11:01)
[2016-06-14] MEDS: LORATADINE 10 MG TABLET PO SCH (11:02)
[2016-06-14] MEDS: TAMSULOSIN HCL 0.4 MG CAP.ER.24H PO SCH (11:05)
[2016-06-14] MEDS ORDERED: HYDROCODONE/APAP 7.5/325MG TABLET PO PRN (11:14)
--- NOTE | 2016-06-14 11:23 | Discharge Summary ---
Providers Discharge Summary Date: 06/14/16 Date of admission: 06/12/16 17:19 Expected Date of Discharge: 06/14/16 Attending physician: JUAN DANIEL BERGER Primary care physician: JUAN DANIEL BERGER Physical Exam - Vital Signs Vital Signs: Vital Signs - Last 24 Hrs Temp Pulse Resp BP Pulse Ox 06/14/16 08:32 98.3 F 77 20 154/76 94 L 06/14/16 06:00 98.6 F 74 16 143/73 93 L 06/14/16 01:37 98.8 F 82 18 145/76 91 L 06/13/16 22:29 98.7 F 74 18 126/67 92 L 06/13/16 18:00 98.0 F 80 18 149/90 91 L 06/13/16 14:43 97.9 F 82 18 152/91 91 L - General General Appearance: Alert, Oriented x3, Cooperative, No acute distress Limitations: No limitations - Head Head exam: Normal inspection - Eye Eye exam: Normal appearance, PERRL. negative: Conjunctival injection - ENT ENT exam: Normal exam, Mucous membranes moist, Normal external ear exam, Normal orophraynx Ear exam: Normal external inspection. negative: External canal tenderness Nasal Exam: Normal inspection. negative: Discharge, Sinus tenderness Mouth exam: Normal external inspection, Tongue normal Teeth exam: Normal inspection. negative: Dental caries Throat exam: Normal inspection. negative: Tonsillar erythema, Tonsillar exudate - Neck Neck exam: Normal inspection, Full ROM. negative: Tenderness - Respiratory Respiratory exam: Normal lung sounds bilaterally. negative: Decreased breath sounds, Respiratory distress, Rhonchi, Stridor, Wheezes - Cardiovascular Cardiovascular Exam: Regular rate, Normal rhythm, Normal heart sounds, Systolic murmur (grade I/II) - GI/Abdominal GI/Abdominal exam: Soft, Other (soft, non-tender, hyperactive bowel sounds RUQ and RLQ, mildly hypoactive LUQ and LLQ). negative: Diminished bowel sounds, Distended, Guarding, Hernia, Rigid, Tenderness - Rectal Rectal exam: Deferred - exam: Deferred - Extremities Extremities exam: Normal inspection, Full ROM, Normal capillary refill. negative: Tenderness - Back Back exam: Reports: Normal inspection, Full ROM. Denies: Muscle spasm, Rash noted, Tenderness - Neurological Neurological exam: Alert, Normal gait, Oriented X3 - Psychiatric Psychiatric exam: Normal affect, Normal mood. negative: Agitated, Anxious - Skin Skin exam: Dry, Intact, Normal color, Warm Hospitalization - Hospitalization Admission Diagnosis: Small Bowel obstruction - Problem List/Discharge Diagnosis (1) Small bowel obstruction Current Visit: Yes Status: Acute Base Code: K56.69 - OTHER INTESTINAL OBSTRUCTION Comment: 06/14/[address] Briceño- abdominal x-ray most likely ileus IVF D/C Tolerating regular diet + stooling and flatus (2) Vomiting and diarrhea Current Visit: Yes Status: Acute Base Code: R11.10 - VOMITING, UNSPECIFIED; R19.7 - DIARRHEA, UNSPECIFIED Comment: 06/14/16 Nausea and vomiting resolved IVF D/C Continues with loose frequent stooling and + flatus (3) DVT prophylaxis Current Visit: No Status: Acute Base Code: [id number] - Comment: 06/14/16 Lovenox 40mg SQ QD, will DC at discharge (4) Full code status Current Visit: No Status: Acute Base Code: Z78.9 - OTHER SPECIFIED HEALTH STATUS Comment: 06/13/16 Patient will remain full code status during hospitalization (5) DM2 (diabetes mellitus, type 2) Current Visit: Yes Status: Chronic Discharge Diagnosis: Diabetes mellitus complication status: without complication Diabetes mellitus long term care administrator insulin use: without long term care administrator use Qualified Code(s): E11.9 - Type 2 diabetes mellitus without complications Base Code: E11.9 - TYPE 2 DIABETES MELLITUS WITHOUT COMPLICATIONS Comment: 06/14/16 Began regular diet today and tolerating well Restart Glipizide and Metformin per home dosing - Hospitalization Course Procedures: Imaging and X-Rays 06/13/16 11:10 ABDOMEN 2 VIEW [RAD] Stat Abnormal Labs: Abnormal Lab Results 06/13/16 06/13/16 06/14/16 Range/Units 06:00 06:00 05:55 WBC 3.8 L (4.2-12.2) K/uL RBC 4.22 L 4.11 L (4.40-5.70) M/uL Hgb 13.0 L 12.6 L (14.0-18.0) gm/dl Hct 41.0 L 39.7 L (42.0-52.0) % MCV 97.2 H (81-97) fl MCHC 31.7 L 31.7 L (32-36) g/dl RDW 14.6 H (11.5-14.5) % Plt Count 111 L 100 L (130-400) K/uL Gran % 43.4 L 40.6 L (47-80) % Monocytes % 13.0 H (0-9) % Chloride 109 H (98-107) mmol/L BUN (9-20) mg/dL Random Glucose 112 H (70-110) mg/dL Calcium 8.1 L (8.5-10.1) mg/dL 06/14/16 Range/Units 05:55 WBC (4.2-12.2) K/uL RBC (4.40-5.70) M/uL Hgb (14.0-18.0) gm/dl Hct (42.0-52.0) % MCV (81-97) fl MCHC (32-36) g/dl RDW (11.5-14.5) % Plt Count (130-400) K/uL Gran % (47-80) % Monocytes % (0-9) % Chloride (98-107) mmol/L BUN 8 L (9-20) mg/dL Random Glucose 116 H (70-110) mg/dL Calcium 8.3 L (8.5-10.1) mg/dL Condition at Discharge: (2) Stable Discharge Medications - Discharge Medications Prescriptions: Ondansetron [Zofran Odt] 4 mg PO Q8H #15 tab.rapdis Home Medications: Ambulatory Orders Hydrocodone/Acetaminophen [Hydrocodone/Acetaminophen 7.5mg/325mg] 1 tab PO BID # 90 03/09/16 [Last Taken Unknown] Lisinopril 40 mg PO DAILY #30 03/09/16 [Last Taken 06/12/16] Cetirizine HCl [Zyrtec] 10 mg PO DAILY cap 04/07/16 [Last Taken 06/11/16] Ondansetron [Zofran Odt] 4 mg PO Q8H #15 tab.rapdis 06/12/16 [Last Taken Unknown ] Tamsulosin HCl [Flomax] 0.4 mg PO DAILY 06/12/16 [Last Taken 06/11/16] Discharge Plan - Discharge Instructions Activity at Discharge: Increase Activity as Tolerated Diet at Discharge: Advance to Usual Diet Additional Instructions: Use Mirilax daily to be sure to move bowels at least ever 2 days, may use Mirilax every other day if continued diarrhea The next 1 day use drinks fluids then slowly adding regular foods Return immediately if you have fever, pain, vomiting, unable to eat, uncontrolled diarrhea or new concerns. Call your doctor for a recheck in the next 1 day or return to the ER for a recheck
--- NOTE | 2016-06-15 16:00 | Medical Records Consult ---
CONSULTATION DATE: 06/13/2016. REFERRING PHYSICIAN: Ernestina Amin M.D. REASON FOR CONSULTATION: Bowel obstruction. HISTORY OF PRESENT ILLNESS: The patient is a 66-year-old male who had about a 12-hour history of some abdominal pain. This led to some nausea, vomiting, and diarrhea. He states that this became so great that he was seen at the [facility] emergency room. At that time a full work up was done. He was initially treated conservatively as we tried to feed him and give him intravenous hydration. However, he began to vomit. Therefore a CT scan was ordered. This did show small bowel obstruction. Also of note, he had bilateral fat-containing inguinal hernias and some adenopathy which had increased in size. PAST MEDICAL HISTORY: Is significant for chronic obstructive pulmonary disease , liver cirrhosis, benign prostatic hypertrophy, and hepatitis. PAST SURGICAL HISTORY: Right rib surgery, right shoulder surgery, upper endoscopy. CURRENT MEDICATIONS: He currently takes [place] 7.5 mg twice a day, lisinopril, Zyrtec, and Flomax. ALLERGIES: He has no known medical allergies. SOCIAL HISTORY: He denies any tobacco or alcohol usage, although he did drink fairly heavily in the past. PHYSICAL EXAMINATION: Vital Signs: Are stable. He is afebrile. Heart: Regular rate and rhythm. Lungs: Clear. Abdomen: Soft, obese, and mildly tender. Bowel sounds are noted. Extremities: The extremities do show +1 edema. LABORATORY DATA: His labs were reviewed. DIAGNOSTIC DATA: I did review his CT scan and follow up x-rays. IMPRESSION: Partial small bowel obstruction. PLAN: Currently this is improving. Therefore I did start him on clear liquids , and we will follow him clinically. If this does not resolve, then we can certainly re-examine him as needed. Thank you for this referral. Paulino Briceño D.O. Date Time JOB NUMBER: [id number] [facility]
== END 2016-06-14 14:15 | disposition home or self-care (01) | DRG 390 ==
LOC: ER 11:34 → MEDSURG 17:19
PROVIDERS: ADMIT Family Medicine; ATTEND Family Medicine
DX: K56.69 Other intestinal obstruction (principal); R11.10 Vomiting, unspecified; Z78.9 Other specified health status; R11.0 Nausea; E11.9 Type 2 diabetes mellitus without complications; Z79.84 Long term (current) use of oral hypoglycemic drugs; Z87.891 Personal history of nicotine dependence; I10 Essential (primary) hypertension; I69.354 Hemiplegia and hemiparesis following cerebral infarction affecting left non-dominant side; J84.10 Pulmonary fibrosis, unspecified; R19.7 Diarrhea, unspecified; I71.9 Aortic aneurysm of unspecified site, without rupture; Z86.19 Personal history of other infectious and parasitic diseases; N28.9 Disorder of kidney and ureter, unspecified; E86.0 Dehydration
CPT/HCPCS: 99285 ×2; 96376; 96374; 96372; 96375; 83690; 85025; 80076; 80048; 74177; Q9967; J2405 ×2; J2270; 74020; 80053; 85027; 85610; 85730; 99223; 99239; J1650; J7030

== ENCOUNTER → 2016-10-07 | Day surgery (SDC) | payer MEDICARE, OTHER ==
[~2016-10-07] MED LIST: FENTANYL PF 100MCG/2ML VIAL IV ONE; LIDOCAINE 2% MDV (20MG/ML) 20ML VIAL IV ONE; PROPOFOL 10 MG/ML VIAL IV ONE
--- NOTE | 2016-10-11 17:20 | Operative Note ---
DATE OF SERVICE: 10/07/2016. DATE OF SURGERY: 10/07/2016. REQUESTING PHYSICIAN: Dr. Brennan Quijano. SURGEON: Pradeep Grier MD. OPERATIONS: 1. ESOPHAGOGASTRODUODENOSCOPY. 2. COLONOSCOPY. INDICATIONS FOR PROCEDURE: This is a 66-year-old male with a history of cirrhosis of the liver who presented for screening endoscopy, and past history of colon polyps and constipation, who presented for colonoscopy. POSTOPERATIVE DIAGNOSES: 1. Normal esophagus with no esophageal varices. 2. Mild gastritis. 3. Normal duodenum. 4. Left-sided colonic diverticulosis. 5. A 3 mm sessile polyp in the descending colon that was removed by cold biopsy forceps. 6. Suboptimal bowel preparation. SEDATION: Sedation is per Anesthesia. Pulse oximetry was monitored throughout the procedure to maintain O2 saturation of 90% or greater. Supplemental oxygen was administered via nasal cannula. Cardiac and vital signs were monitored throughout the duration of the procedures, and they were stable. The procedures of colonoscopy and esophagogastroduodenoscopy and risks and benefits of the procedures, including the risk of bleeding and perforation, among others, were explained to the patient who voiced understanding and desired to have the procedures done. Physical examination was performed, and the patient was found stable for sedation. PROCEDURE: The patient was placed in the left lateral position. Sedation was initiated. A plastic bite block was inserted into the oral cavity. The Olympus [id number] gastroscope was introduced into the oral cavity and advanced to the proximal esophagus without difficulty. The esophageal mucosa was carefully examined upon introduction of the gastroscope. The proximal, mid, and distal esophageal mucosa appeared normal. The gastroscope was then advanced into the stomach, and surveillance of the stomach revealed normal gastric fundus with diffuse erythema along the gastric body and antrum, but no ulcers were noted. The gastroscope was then advanced to the descending duodenum without difficulty. The duodenal bulb and descending duodenum appeared normal. The gastroscope was then withdrawn into the stomach, and retroflexion maneuver was performed. There was mild erythema along the gastric fundus, but no other lesions were noted. The gastroscope was then withdrawn very carefully, re-examining the gastric and esophageal mucosa. No other lesions noted. Multiple gastric biopsies were obtained. He remained with stable vital signs and was repositioned for colonoscopy. Digital rectal exam was performed, which revealed some external hemorrhoids with no palpable rectal masses. The Olympus [id number] colonoscope was then inserted into the rectum under direct visualization and advanced to the cecum without difficulty. The ileocecal valve and appendiceal orifice were identified and photographed. The colonic mucosa was carefully examined upon introduction of the colonoscope. There were multiple diverticula noted in the sigmoid and descending colon. In the descending colon was a 3 mm sessile polyp that was noted and was removed by cold biopsy forceps. There were no other lesions noted. The bowel preparation was suboptimal. The colonoscope was then withdrawn while carefully examining the colonic mucosal surfaces. No other lesions were noted. In the rectum, retroflexion was performed and grade 1 internal hemorrhoids were noted. The colonoscope was then withdrawn, and the procedures were terminated. The patient tolerated the procedures well without any immediate complications. He remained with stable vital signs and was transferred to the recovery room. PLAN AND RECOMMENDATIONS: 1. He should be on a high-fiber diet. 2. He should have a repeat colonoscopy for surveillance in 3 years and esophagogastroduodenoscopy for screening for esophageal varices in 1 year. Thank you for allowing me to participate in the care of your patient. Pradeep Grier MD CC: MD Brennan Rondon MD MTDD
== END | disposition home or self-care (01) ==
LOC: HOP 08:26
PROVIDERS: ATTEND Internal Medicine Gastroenterology
DX: Z12.11 Encounter for screening for malignant neoplasm of colon (principal); D12.4 Benign neoplasm of descending colon; K29.50 Unspecified chronic gastritis without bleeding; K31.9 Disease of stomach and duodenum, unspecified; E11.9 Type 2 diabetes mellitus without complications; Z79.84 Long term (current) use of oral hypoglycemic drugs; I10 Essential (primary) hypertension; K57.30 Diverticulosis of large intestine without perforation or abscess without bleeding; K74.60 Unspecified cirrhosis of liver
CPT/HCPCS: 45380; 43239; 00810; 88305; J3010

== ENCOUNTER 2017-04-10 20:13 | Emergency (ER) | payer MEDICARE, OTHER ==
--- NOTE | 2017-04-10 20:28 | Emergency Department Record ---
History of Present Illness - General Stated complaint: CATH HAS COME OUT Time Seen by Provider: 04/10/17 20:19 Source: Patient, Family Mode of Arrival: Ambulatory Limitations: No limitations - History of Present Illness Initial comments: 66 yo male presents with leakage around the fields catheter at that penis. He has some burning in the penis. The catheter has been in about 1.5 weeks after prostate surgery. He reports it is scheduled to be removed tomorrow in the [facility] specialty clinic with Dr Alas. He denies any other current symptoms. No blood in the leg bag. No fevers. He requests the catheter be removed tonight. Complaint: Dysuria -: Hour(s) Location: Penis Radiation: None Severity: Mild Quality: Burning Consistency: Intermittent Improves with: None Worsens with: None Indwelling catheter, Recent surgery Reports: Denies other symptoms - Related Data Allergies Allergy/AdvReac Type Severity Reaction Status Date / Time No Known Drug Allergies Allergy Unverified 03/02/17 11:06 Review of Systems Constitutional: Denies: Chills, Fever, Malaise, Weakness Eyes: Denies: Eye discharge, Eye pain, Photophobia ENT: Denies: Congestion, Throat pain Respiratory: Denies: Cough, Dyspnea, Hemoptysis, Stridor, Wheezes Cardiovascular: Denies: Chest pain, Palpitations, Syncope Endocrine: Denies: Fatigue Gastrointestinal: Denies: Abdominal pain, Diarrhea, Nausea, Vomiting Genitourinary: Reports: Dysuria (penis chester from the catheter). Denies: Frequency, Hematuria, Incontinence, Retention Musculoskeletal: Denies: Arthralgia, Back pain, Myalgia, Neck pain Neurological: Denies: Confusion, Headache Psychiatric: Denies: Anxiety Hematological/Lymphatic: Denies: Blood Clots, Easy bleeding, Easy bruising, Swollen glands Past Medical History - SOCIAL HISTORY Smoking Status: Former smoker - RESPIRATORY Hx Respiratory Disorders: Yes Hx Sleep Apnea: Yes Hx of CPAP: Yes Comment:: pulmonary fibrosis since 1984 - CARDIOVASCULAR Comment:: aortic aneurysm-chest? 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 negative: Conjunctival injection, Scleral icterus - ENT ENT exam: Normal exam, Mucous membranes moist Ear exam: Normal external inspection Nasal Exam: Normal inspection Mouth exam: Normal external inspection - Neck Neck exam: Normal inspection - Respiratory Respiratory exam: Normal lung sounds bilaterally. negative: Respiratory distress - Cardiovascular Cardiovascular Exam: Regular rate, Normal rhythm, Normal heart sounds - GI/Abdominal GI/Abdominal exam: Soft. negative: Tenderness - Rectal Rectal exam: Deferred - exam: Circumcision, Normal inspection, Other (fields noraml). negative: Scrotal swelling, Testicular tenderness, Urethral discharge - Extremities Extremities exam: Normal inspection - Back Back exam: Reports: Normal inspection, Full ROM. Denies: Muscle spasm, Rash noted, Tenderness - Neurological Neurological exam: Alert, Normal gait, Oriented X3, Reflexes normal - Psychiatric Psychiatric exam: Normal affect, Normal mood - Skin Skin exam: Dry, Intact, Normal color, Warm Course - Reevaluation(s) Reevaluation #1: The RN flushed a clot out. The patient feels improved and is resting comfortably. Recommend DC to see Dr Alas tomorrow 04/10/17 20:46 Disposition Disposition: Discharge Clinical Impression: Urinary retention Disposition: Home, Self-Care Condition: (1) Good Instructions: Fields Catheter Placement and Care (ED) Additional Instructions: Follow up tomorrow with Dr Alas as scheduled Return if the fields has any problems tonight Time of Disposition: 20:48 Quality - Quality Measures Quality Measures: N/A - Blood Pressure Screening Does Patient Have Any of the Following: No Blood Pressure Classification: Hypertensive Reading Systolic Measurement: 181 Diastolic Measurement: 98 Screening for High Blood Pressure: < Pre-Hypertensive BP, F/U Documented > [ [id number]] Pre-Hypertensive Follow-up Interventions: Referral to alternative/primary care provider.
== END 2017-04-10 21:11 | disposition home or self-care (01) ==
LOC: ER 20:13
DX: R33.8 Other retention of urine (principal); Z98.890 Other specified postprocedural states
CPT/HCPCS: 99282

== ENCOUNTER 2018-11-02 07:11 | Day surgery (SDC) | payer MEDICARE, OTHER ==
[2018-11-02] MEDS ORDERED: LIDOCAINE 2% MDV (20MG/ML) 20ML VIAL IV ONE (07:12)
[2018-11-02] MEDS ORDERED: PROPOFOL 10 MG/ML VIAL IV ONE (07:12)
--- NOTE | 2018-11-05 10:00 | Operative Note ---
DATE OF SERVICE: 11/02/2018. DATE OF SURGERY: 11/02/2018. REQUESTING PROVIDER: JACQUELIN Torres. SURGEON: Pradeep Grier MD. PROCEDURE: Esophagogastroduodenoscopy. INDICATION FOR PROCEDURE: This is a 68-year-old male with history of cirrhosis of the liver, who presented for screening esophagogastroduodenoscopy for esophageal varices. POSTOPERATIVE DIAGNOSES: 1. Grade 1 esophageal varices. 2. Diffuse portal gastropathy. 3. Normal duodenum. SEDATION: Sedation is per Anesthesia. Pulse oximetry was monitored throughout the duration of the procedure to maintain O2 saturation of 90% of greater. Supplemental oxygen was administered via nasal cannula. Cardiac and vital signs were monitored throughout the duration of the procedure and they were stable. PROCEDURE: The procedure of esophagogastroduodenoscopy, risks and alternatives to the procedure, including the risks of bleeding and perforation among others, were explained to the patient. Patient voiced understanding and agreed to have the procedure done. Physical examination was performed, and the patient was found stable for sedation. The patient was then placed in the lateral position and sedation was initiated. A plastic bite block was inserted into the oral cavity. A lubricated Olympus [id number] gastroscope was then placed in the posterior oropharynx and under direct visualization was advanced to the proximal esophagus without difficulty. The esophageal mucosa was carefully examined upon introduction of the gastroscope. The proximal and mid esophageal mucosa appeared normal. In the distal esophagus were Grade 1 esophageal varices with no stigmata of recent bleeding. The gastroscope was then advanced into the stomach and serial examination of the stomach revealed diffuse erythema with edema involving the gastric body, fundus, and antrum. No ulcers were noted. The gastroscope was then advanced into the descending duodenum without difficulty. The duodenal bulb and descending duodenum appeared normal. The gastroscope was then withdrawn into the stomach and retroflexion maneuver was performed. There were no other lesions noted. The gastroscope was then withdrawn, and retroflexion maneuver was performed, and there were no other lesions noted. The gastroscope was withdrawn from the stomach. There were no other lesions and it appeared normal. He remained with stable vital signs and was transferred to the recovery room. PLAN AND RECOMMENDATIONS: 1. Continue on his proton pump inhibitors. 2. I will see him back in about 6 months for repeat endoscopy. Thank you for allowing me to participate in the care of this patient. ELYSE
== END 2018-11-02 09:10 | disposition home or self-care (01) ==
LOC: HOP 07:11
PROVIDERS: ATTEND Internal Medicine Gastroenterology
DX: K74.60 Unspecified cirrhosis of liver (principal); R10.13 Epigastric pain; I85.00 Esophageal varices without bleeding; K31.89 Other diseases of stomach and duodenum; K21.9 Gastro-esophageal reflux disease without esophagitis; E11.9 Type 2 diabetes mellitus without complications; I10 Essential (primary) hypertension

== ENCOUNTER 2019-05-10 08:24 | Day surgery (SDC) | payer MEDICARE ==
[2019-05-10] MEDS ORDERED: PROPOFOL 10 MG/ML VIAL IV ONE (08:25)
[2019-05-10] MEDS ORDERED: FENTANYL PF 100MCG/2ML VIAL IV ONE (08:25)
[2019-05-10] MEDS ORDERED: LIDOCAINE 2% MDV (20MG/ML) 20ML VIAL IV ONE (08:25)
--- NOTE | 2019-05-14 06:01 | Operative Note ---
SURGEON: Pradeep Grier MD OPERATION: 1. ESOPHAGOGASTRODUODENOSCOPY. 2. COLONOSCOPY. INDICATIONS: This is a 68-year-old male with history of cirrhosis of the liver and colon polyps who presented for both esophagogastroduodenoscopy and colonoscopy. POSTOPERATIVE DIAGNOSES: 1. Grade 1 esophageal varices. 2. Normal stomach and duodenum. 3. Scattered left-sided colonic diverticulosis. 4. Otherwise normal colon. ANESTHESIA: Sedation is per Anesthesia. Pulse oximetry was monitored throughout the procedure to maintain O2 saturation of 90% or greater. Supplemental oxygen was administered via nasal cannula. Cardiac and vital signs were monitored throughout the duration of the procedure, and they were stable. The procedures of esophagogastroduodenoscopy and colonoscopy and risks and benefits of the procedures, including the risk of bleeding and perforation, among others, were explained to the patient who voiced understanding and agreed to have the procedures done. Physical examination was performed, and the patient was found stable for sedation. PROCEDURE: The patient was placed in the left lateral position. Sedation was initiated. A plastic bite block was inserted into the oral cavity. The Olympus [id number] gastroscope was introduced into the oral cavity and advanced to the proximal esophagus without difficulty. The esophageal mucosa was carefully examined upon introduction of the gastroscope. The proximal, mid, and distal esophageal mucosa appeared normal with grade 1 esophageal varices in the distal esophagus. The gastroscope was then advanced into the stomach, and surveillance of the stomach revealed normal gastric fundus, body, and antrum with no ulcers or any erythema noted. The gastroscope was then advanced to the descending duodenum without difficulty. The duodenal bulb and descending duodenum appeared normal. The gastroscope was then withdrawn while carefully examining the gastric and esophageal mucosa. No other lesions noted. The patient remained with stable vital signs and was repositioned for colonoscopy. A digital rectal exam was performed and showed some mild external hemorrhoids with no palpable rectal masses. An Olympus [id number]-180AL colonoscope was then inserted into the rectum under direct visualization. It was advanced to the cecum without difficulty. The ileocecal valve and appendiceal orifice were identified and photographed. The colonic mucosa was carefully examined upon introduction of the colonoscope. There were no lesions noted. The colonoscope was then withdrawn while carefully examining the colonic mucosal surfaces. The cecum, ascending colon, transverse colon, and descending colon appeared normal. In the sigmoid colon were scattered diverticula. The colonoscopy was then withdrawn into the rectum and retroflexion was performed. There were no other lesions noted. The patient tolerated the procedure well without any immediate complications. The patient remained with stable vital signs and was transferred to the recovery room. RECOMMENDATIONS: 1. The patient should be on a high-fiber diet. 2. The patient should have a repeat colonoscopy in 5 years and esophagogastroduodenoscopy to reassess the esophageal varices in 6 months. Thank you for allowing me to participate in the care of your patient. ELYSE
== END 2019-05-10 10:50 | disposition home or self-care (01) ==
LOC: HOP 08:24
PROVIDERS: ATTEND Internal Medicine Gastroenterology
DX: I85.10 Secondary esophageal varices without bleeding (principal); K74.60 Unspecified cirrhosis of liver; Z86.010 Personal history of colon polyps; K57.30 Diverticulosis of large intestine without perforation or abscess without bleeding; I10 Essential (primary) hypertension; E11.9 Type 2 diabetes mellitus without complications